=== PATIENT | male | born 1985 | race Caucasian/White ===

== ENCOUNTER 2017-01-25 08:18 | Emergency (ER) | payer BC, MEDICAID ==
--- NOTE | 2017-01-25 08:37 | CPEKG ---
Heart Rate: 87 RR Interval: 690 P-R Interval: 184 QRSD Interval: 86 QT Interval: 368 QTC Interval: 443 P Forgan: 63 QRS Forgan: 73 T Wave Forgan: 57 EKG Severity - NORMAL ECG - EKG Impression: SINUS RHYTHM Electronically Signed By: Randal Hickey 25-Jan-2017 14:47:15
[2017-01-25] MEDS ORDERED: KETOROLAC 30 MG/1 ML SDV IVP ONE (08:57)
[2017-01-25] MEDS ORDERED: LORazepam 2 MG/ML INJ IVP ONE (08:57)
--- NOTE | 2017-01-25 09:01 | EDPHY ---
H & P Stated Complaint: CHEST PAIN, INCREASED TURBULENCE WITH STETHOSCOPE Time Seen by Provider: 01/25/17 08:31 - Personal History Current Tetanus Diphtheria and Acellular Pertussis (TDAP): Yes Tetanus Vaccine Date: < 10 YEARS - Medical/Surgical History Hx Asthma: No Hx Chronic Respiratory Disease: No Hx Diabetes: No Hx Cardiac Disease: No Hx Renal Disease: No Hx Cirrhosis: No Hx Alcoholism: No Hx HIV/AIDS: No Hx Splenectomy or Spleen Trauma: No Other PMH: DENIES - Social History Smoking Status: Never smoked Constitutional: Initial Vital Signs Temperature (C) 36.5 C 01/25/17 08:21 Heart Rate 85 01/25/17 08:21 Respiratory Rate 16 01/25/17 08:21 Blood Pressure 150/68 H 01/25/17 08:21 O2 Sat (%) 98 01/25/17 08:21 O2 Delivery Mode Room Air O2 (L/minute) 2 Allergies/Adverse Reactions: No Known Allergies Allergy (Unverified 01/25/17 08:24) Home Medications: Medication Instructions Recorded Citalopram 01/25/17 Ibuprofen [Motrin] 800 mg PO Q8 #20 tab 01/25/17 buPROPion 01/25/17 Medical Decision Making - Diagnostics Imaging Results: Imaging Impressions Chest X-Ray 01/25/17 08:32 IMPRESSION: Normal chest x-ray. Imaging: Discussed imaging studies w/ house calls nurse practitioner Radiologist, I viewed and interpreted images myself ED Course/Re-evaluation: CHIEF COMPLAINT: Chest pain HISTORY OF PRESENT ILLNESS: The patient is a 31 y/o male with a history of hyperlipidemia arriving with his friend complaining of chest pain he noticed one hour ago upon waking. He describes his pain as sharp and located along his left anterior chest. The pain radiates minimally into his left shoulder. He had some associated rapid breathing and pleurisy. He has never had these symptoms previously. 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 He was able to walk yesterday without issue. He denies associated nausea, lightheadedness, dizziness. He flew here from [place] a few days ago on a 1.5 hour flight, but denies history of blood clots. REVIEW OF SYSTEMS: A 10 point review of systems was performed and is negative with the exception of the elements mentioned in the history of present illness. PHYSICAL EXAM: General Appearance: Alert, well hydrated, appropriate, and anxious-appearing. Head: Atraumatic without scalp tenderness or obvious injury Eyes: Pupils equal, round, reactive to light and accommodation, EOMI, no trauma , no injection. Nose: Atraumatic, no rhinorrhea, clear. Throat: There is no erythema or exudates, no lesions, normal tonsils, mucus membranes moist. Neck: Supple Respiratory: No retractions, no distress, no wheezes, and no accessory muscle use. Lungs are clear to auscultation bilaterally. Cardiovascular: Regular rate and rhythm, no murmurs, rubs, or gallops. Good capillary refill all extremities. Gastrointestinal: Abdomen is soft, non-tender, non-distended, no masses, no rebound, no guarding, no peritoneal signs. Musculoskeletal: Normal active ROM of all extremities, atraumatic. Neurological: Alert, appropriate, and interactive. Nonfocal neuro exam. Skin: No rashes, good turgor, no nodules on palpation. 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 Friend at bedside. Nonsmoker. DIAGNOSTICS/PROCEDURES/CRITICAL CARE TIME: The 12 lead EKG was interpreted by myself. Sinus mechanism with minor early repolarization. See hard copy and/or "tracemaster" electronic copy for interpretation. Chest x-ray: negative. DIFFERENTIAL DIAGNOSIS: The differential diagnosis for the patient's chest pain included but was not limited to myocardial ischemia, pulmonary embolus, chest wall pain, pleural inflammation, and pulmonary infectious causes. MEDICAL DECISION MAKING: This is a healthy 31 y/o male with a history of hyperlipidemia presenting with a 1-hour history of left anterior chest pain. He appears anxious, but his exam is otherwise normal. Plan for full cardiac work up including IV, labs, EKG, chest x-ray, and symptom management. 30mg IV Toradol and 1mg IV Ativan administered. 0930: Reassessed patient. He is feeling much better after medication and reports his pain is now 1/3rd of what it was initially. His chest x-ray, troponin, EKG, and d-dimer are all negative. His symptoms are consistent with a musculoskeletal etiology and are likely exacerbated by his anxiety. He will be discharged with ibuprofen instructions and recommendation to follow up with his PCP in the next week. Return precautions given. He is comfortable with this plan. - Data Points Laboratory Results: Laboratory Results 01/25/17 09:00 01/25/17 09:00 01/25/17 01/25/17 01/25/17 09:00 09:00 09:00 WBC 5.35 10^3/uL 10^3/uL (3.80-9.50) RBC 5.13 10^6/uL 10^6/uL (4.40-6.38) Hgb 16.1 g/dL g/dL (13.7-17.5) Hct 45.1 % % (40.0-51.0) MCV 87.9 fL fL (81.5-99.8) MCH 31.4 pg pg (27.9-34.1) MCHC 35.7 g/dL g/dL (32.4-36.7) RDW 12.3 % % (11.5-15.2) Plt Count 205 10^3/uL 10^3/uL (150-400) MPV 10.0 fL fL (8.7-11.7) Neut % (Auto) 67.7 % % (39.3-74.2) Lymph % (Auto) 22.8 % % (15.0-45.0) [place] % (Auto) 6.5 % % (4.5-13.0) Eos % (Auto) 2.1 % % (0.6-7.6) Baso % (Auto) 0.7 % % (0.3-1.7) Nucleat RBC Rel Count 0.0 % % (0.0-0.2) Absolute Neuts (auto) 3.62 10^3/uL 10^3/uL (1.70-6.50) Absolute Lymphs (auto) 1.22 10^3/uL 10^3/uL (1.00-3.00) Absolute Monos (auto) 0.35 10^3/uL 10^3/uL (0.30-0.80) Absolute Eos (auto) 0.11 10^3/uL 10^3/uL (0.03-0.40) Absolute Basos (auto) 0.04 10^3/uL 10^3/uL (0.02-0.10) Absolute Nucleated RBC 0.00 10^3/uL 10^3/uL (0-0.01) Immature Gran % 0.2 % % (0.0-1.1) Immature Gran # 0.01 10^3/uL 10^3/uL (0.00-0.10) D-Dimer 0.31 ug/mLFEU ug/mLFEU (0.00-0.50) Sodium 141 mEq/L mEq/L (134-144) Potassium 4.7 mEq/L mEq/L (3.5-5.2) Chloride 105 mEq/L mEq/L (97-110) Carbon Dioxide 20 mEq/l L mEq/l (22-31) Anion Gap 16 mEq/L mEq/L (8-16) BUN 15 mg/dL mg/dL (7-23) Creatinine 0.9 mg/dL mg/dL (0.7-1.3) Estimated GFR > 60 Glucose 96 mg/dL mg/dL (70-100) Calcium 10.2 mg/dL mg/dL (8.5-10.4) Troponin I < 0.012 ng/mL ng/mL (0.000-0.034) NT-Pro-B Natriuret Pep 37 pg/mL pg/mL (0-125) Medications Given: Discontinued Medications Ketorolac Tromethamine (Toradol) 30 mg IVP EDNOW ONE Stop: 01/25/17 08:58 Last Admin: 01/25/17 09:03 Dose: 30 mg Lorazepam (Ativan Injection) 1 mg IVP EDNOW ONE Stop: 01/25/17 08:58 Last Admin: 01/25/17 09:04 Dose: 1 mg Departure - Departure Disposition: Home, Routine, Self-Care Clinical Impression: Musculoskeletal chest pain Condition: Good Instructions: Chest Wall Pain (ED) Additional Instructions: 1. Take 800mg ibuprofen every 6-8 hours as needed for pain for the next few days. 2. Follow up with your primary care provider for unimproved symptoms over the next few days. 3. Return to the ED for any worsening of condition. Referrals: Kerry Sarmiento MD [Medical Doctor] - As per Instructions Prescriptions: Ibuprofen [Motrin] 800 mg PO Q8 #20 tab Report Scribed for: Randal Hickey Report Scribed by: Imani Beltran Date of Report: 01/25/17 Time of Report: 09:01
[2017-01-25 09:14] LABS: % IMMATURE GRANULYOCYTES 0.2 % (0.0-1.1); ABSOLUTE IMMATURE GRANULOCYTES 0.01 10^3/uL (0.00-0.10); ADD DIFF? NO; ADD MORPH? NO; ADD SCAN? NO; ATYPICAL LYMPHOCYTE FLAG 0 (0-99); FRAGMENT RBC FLAG 0 (0-99); HEMATOCRIT 45.1 % (40.0-51.0); HEMOGLOBIN 16.1 g/dL (13.7-17.5); LEFT SHIFT FLG 0 (0-99); LIPEMIA HEMOLYSIS FLAG 90 (0-99); MEAN CELL HEMOGLOBIN 31.4 pg (27.9-34.1); MEAN CELL HEMOGLOBIN CONCENTR. 35.7 g/dL (32.4-36.7); MEAN CELL VOLUME 87.9 fL (81.5-99.8); PLATELET CLUMPS FLAG 20 (0-99); PLATELET COUNT 205 10^3/uL (150-400); RED BLOOD CELL COUNT 5.13 10^6/uL (4.40-6.38); RED CELL DISTRIBUTION WIDTH 12.3 % (11.5-15.2)
[2017-01-25 09:20] LABS: ANION GAP 16 mEq/L (8-16); CALCIUM 10.2 mg/dL (8.5-10.4); CARBON DIOXIDE 20 mEq/l (22-31); CHLORIDE 105 mEq/L (97-110); CREATININE 0.9 mg/dL (0.7-1.3); GLOMERULAR FILTRATION RATE > 60; GLUCOSE 96 mg/dL (70-100); POTASSIUM 4.7 mEq/L (3.5-5.2); SODIUM 141 mEq/L (134-144)
[2017-01-25 09:33] LABS: TROPONIN I < 0.012 ng/mL (0.000-0.034)
[2017-01-25 09:51] VITALS: BP 132/76; PULSE 77; RESP 19; TEMP 98.5; O2SAT 94
== END 2017-01-25 09:46 | disposition home or self-care (01) ==
DX: R07.89 Other chest pain (principal)
CPT/HCPCS: 96374; J1885; J2060